=== PATIENT | female | born 1960 | race Caucasian/White ===

== ENCOUNTER → 2025-03-14 | Outpatient (CLI) | payer MEDICARE, BC ==
--- NOTE | 2025-03-14 12:41 | RADIOLOGY REPORT ---
CLINICAL INDICATION: PAIN RT FOOT/ANKLE;STRESS FRACTURE 5TH METATARSAL COMPARISON: None TECHNIQUE: Multiplanar, multisequence MRI of the right foot was performed without intravenous contras t. Contrast: None. INTERPRETATION: Bones: There is focal bone marrow edema in the proximal 5th metatarsal bone with a subtle low signal intensity fracture plane on the T1 weighted image consistent with stress fracture. There is moderate bone marrow edema in the midfoot including the bases of the 2nd through 4th metatarsal bones in the c uneiforms, likely related to arthrosis. Joints: There is narrowing of the 1st, 2nd and 3rd tarsometatarsal joints. Soft tissues: The Lisfranc ligament is mildly T2 hyperintense without tear. The medial and lateral c ollateral ligaments are intact at the metatarsophalangeal joints. The flexor and extensor tendons ar e intact. There is no plantar plate tear. There is no soft tissue mass or fluid collection. The in trinsic muscles of the foot are unremarkable. Mild soft tissue edema in the lateral foot. IMPRESSION: 1. Stress fracture in the proximal 5th metatarsal bone. 2. Midfoot arthrosis. 3. Possible sprain of the Lisfranc ligament. 4. Mild soft tissue edema in the lateral foot.
== END | disposition home or self-care (01) ==
LOC: MRI02 09:12
PROVIDERS: ATTEND Family Medicine Sports Medicine
DX: M84.374A Stress fracture, right foot, initial encounter for fracture (principal); M79.671 Pain in right foot; M25.551 Pain in right hip; M16.12 Unilateral primary osteoarthritis, left hip; X58.XXXA Exposure to other specified factors, initial encounter; R60.0 Localized edema; Y93.89 Activity, other specified; Y92.89 Other specified places as the place of occurrence of the external cause; Y99.8 Other external cause status
CPT/HCPCS: 73721